=== PATIENT | female | born 1985 | race Caucasian/White ===

== ENCOUNTER 2022-04-30 09:22 | Outpatient (CLI) | payer OTHER, SELFPAY | END 2022-04-30 09:23 | disposition home or self-care (01) | LOC: ANHAUDIO 09:23 | PROVIDERS: PCP Family Medicine; Visit Provider Family Medicine | DX: H93.13 Tinnitus, bilateral (principal) | CPT/HCPCS: 92557; 92567 ==

== ENCOUNTER 2024-05-26 14:54 | Outpatient (CLI) | payer BC, SELFPAY ==
--- NOTE | ~2024-05-26 | XR_ITS ---
EXAMINATION: XR cervical spine 4-5V DATE: 05/26/2024 15:08 INDICATION: Radiculopathy, cervical region. TECHNIQUE: 6 views of cervical spine including flexion and extension views were obtained. COMPARISON: None. FINDINGS: There is mild kyphosis of cervical spine. There is no abnormal motion with flexion or exten elvis. Vertebral body heights are normal. There is mildly decreased disc height at C4-C5 and moderatel y decreased disc height at C5-C6. The facet joints are unremarkable. There is mild central canal sten osis at C5-C6. No prevertebral soft tissue swelling. IMPRESSION: 1. Moderate cervical spondylosis. Reviewed, dictated and finalized at location A. [facility]
== END 2024-05-26 14:55 | disposition home or self-care (01) ==
LOC: GOSHIMG 14:56
PROVIDERS: PCP Family Medicine; Visit Provider Family Medicine
DX: M47.812 Spondylosis without myelopathy or radiculopathy, cervical region (principal)
CPT/HCPCS: 72050